=== PATIENT | female | born 1960 | race Caucasian/White ===

== ENCOUNTER 2025-06-25 21:39 | Inpatient (IN) | payer MEDICARE, MEDICAID ==
[~2025-06-25] VITALS: Ht 167.6 cm; Wt 58.0 kg
[2025-06-25 22:23] LABS: MEAN PLATELET VOLUME 7.3 FL (7.4-10.4); RED CELL DISTRIBUTION WIDTH 14.3 % (11.5-14.5)
--- NOTE | 2025-06-25 22:28 | RADIOLOGY REPORT ---
CHEST RADIOGRAPH Indication: CP Technique: 1 view Comparison: None FINDINGS: Lines and Tubes: External leads. Lungs/Pleura: No focal consolidation, pleural effusion or pneumothorax. Interstitial opacities appear within normal limits. Cardiomediastinum: Unremarkable. Other: No acute osseous abnormality. IMPRESSION: 1. No acute cardiopulmonary abnormality.
[2025-06-25 22:43] LABS: CREATININE 1.00 MG/DL (0.40-0.90); PRO BRAIN NATRIURETIC PEPTIDE 142 PG/ML (0-125); TOTAL CARBON DIOXIDE 17.1 MMOL/L (24-32); eCRCL 51 ML/MIN; eGFR 56 ML/MIN
--- NOTE | 2025-06-25 23:13 | RADIOLOGY REPORT ---
EXAM: CT CT HEAD INDICATION: aloc TECHNIQUE: CT of the head without intravenous contrast. Radiation Dose : 1. Head: CT Dose: CTDI volume is 51.35 mGy. Dose-length product is 892.15 mGy*cm The dose indicators for CT are the volume Computed Tomography (CT) Dose Index (CTDIvol) and the Dose Length Product (DLP), and are measured in units of mGy and mGy-cm, respectively. These indicators are not patient dose, but values generated from the CT scanner acquisition factors. The report includes radiation exposure data for exposures received during this examination. COMPARISON: None FINDINGS: There is no evidence of acute intracranial hemorrhage, extra-axial collection, mass effect, midline shift, herniation or hydrocephalus. The ventricles, sulci and cisterns are age appropriate. The don-white differentiation is intact. Right sphenoid and maxillary mucosal sinus disease. The remaining visualized paranasal sinuses and mastoid air cells are clear. The surrounding soft tissues and osseous structures are unremarkable. IMPRESSION: 1. No acute intracranial abnormality. Radiation optimization: All CT scans at this facility use at least one of these dose optimization techniques: automated exposure control mA and/or kV adjustment per patient size (includes targeted exams where dose is matched to clinical indication) or iterative reconstruction.
[2025-06-25 23:29] LABS: ETHANOL < 10 MG/DL (<10)
[2025-06-26 00:13] LABS: LEUKOCYTE ESTERASE ,URINE NEGATIVE (Neg); NITRITES, URINE POSITIVE (Neg); OCCULT BLOOD,URINE NEGATIVE (Neg)
[2025-06-26 00:17] LABS: UA COLLECTION TYPE OTHER
--- NOTE | 2025-06-26 00:18 | Physician Documentation ---
History of Present Illness ~ Chief Complaint: Mechanical Fall Stated Complaint: WEAKNESS Time Seen by MD: 22:14 OK to notify your PCP?: Yes Source: patient, RN/MD, EMS, RN notes reviewed, EMS notes reviewed, old records Mode of Arrival: EMS Exam Limitations: no limitations HPI This patient was brought into bed six report is obtained by EMS patient is altered complaint was generalized weakness supposedly presented to [facility] [place] yesterday for the same thing as well as frequent falls however we did not have any records that the patient has been to [facility]. Patient apparently had an unwitnessed fall acute mental status changes that occurred during the day she was a bit altered at noon. Neighbors noticed that she was wobbling toward the street. Apparently she was on the ground poorly responsive her children went to the neighbor's house to let them know that she was not doing well EMS was called for whom she is now here for evaluation. There was no report of prior history of strokes drug abuse no reports of fevers or chills or illness or sick contacts. Patient is now here for evaluation. Medication Reconciliation Allergies: Uncoded Allergies: PENCILLIN (Allergy, Unknown, 06/25/25) Past Medical History Past Medical History: Thyroid (unspecified) Past Surgical History: other (Unknown) Past Social History: Social history unknown Review of Systems ROS Unable to obtain due to medical state Physical Exam Vital Signs: RN Vital Signs have been reviewed: Yes, Temperature: 98.1, Source: Oral, Heart Rate: 93, Respiratory Rate: 16, BP: 105/62, Pulse Oximetry: 92, Weight: 58.000 Oxygen Flow Rate: 0 Physical Exam General: The patient is well developed, well nourished, nontoxic appearing but somnolent and no acute distress. Skin: [place], warm and dry with no rashes. HEENT: Head was normocephalic and atraumatic. Eyes - pupils equal, round, reactive to light and accommodation. Extraocular movements were intact. Pupils are 3 mm reactive Conjunctivae were nonicteric. The mouth and oropharynx were clear with moist mucous membranes. There were no pharyngeal exudates or erythema. Neck: Supple and nontender. There was no jugular venous distention, lymphadenopathy, thyromegaly or masses. Chest: Clear to auscultation bilaterally without wheezes, rales or rhonchi. No accessory muscle use. No dullness to percussion. Heart: Rate regular and rhythmic. S1, S2. No murmurs. Palpation of the chest wall was normal. No rubs or thrills. Abdomen: Soft, nontender and nondistended. Positive hyperactive bowel sounds. No guarding or rebound. No hepatosplenomegaly or palpable masses. Extremities: No cyanosis, clubbing or edema. The patient moves all extremities. Pulses were equal and symmetric. Neurologic: No focal findings motor sensory grossly intact Psychologic: The patient opens eyes to voice Progress Progress Note Discussed the case with the hospitalist who kindly agreed to admit the patient for further workup and care. Results/Orders Reviewed/noted all lab results: Yes Results/Orders Orders - ROSALES LYNN MD Chest,Single View (06/25/25 22:00) Monitor (06/25/25:) Saline Lock (06/25/25:) Oxygen (06/25/25:) Electrocardiogram (06/25/25:) Straight Cath For Urine Sample (06/25/25:) Culture Blood (06/25/25 22:19) Ct Head (06/25/25 22:35) [place] Prov.Neuro Consult (06/25/25 23:00) Cult Urine + [place] [facility] (06/26/25 00:17) Page Hospitalist (06/26/25 00:28) Fill Out Med Reconciliation (06/26/25 00:28) Completed Orders - ROSALES LYNN MD Chest,Single View (06/25/25 22:00) Cbc/Diff (06/25/25:) BMP (06/25/25:) PBNP (06/25/25:41) Hs Troponin I W Calculations (06/25/25:41) Hs Troponin I W Calculations (06/25/25:41) Hs Troponin I W Calculations (06/26/25:41) Ethanol (06/25/25 22:19) Drug Screen, Urine (06/25/25 22:19) Lacticsepsis (06/25/25 22:19) Ct Head (06/25/25 22:35) Liver Panel (06/25/25 22:36) Ua W/Microscopic, Cult If Ind (06/25/25 23:27) Ceftriaxone/P2s-Whyeyrdg 1gm (Rocephin 1 (06/26/25 00:30) Normal Saline 1000ml (0.9% Sodium Chlori (06/26/25 00:45) Medications Received in ER Medications (Trade) Dose Ordered Sig/[place] Route PRN Reason Start Time Stop Time Status Last Admin Dose Admin Ceftriaxone Sodium 50 ml @ 100 mls/hr ONCE ONCE IV 06/26/25 00:30 06/26/25 00:59 DC 06/26/25 01:02 100 MLS/HR (0.9% sodium chloride (NS) 1000ml IV soln) 1,000 ml ONCE ONCE IVB 06/26/25 00:45 06/26/25 00:46 DC 06/26/25 01:04 1,000 ML Vital Signs 06/25/25 06/25/25 06/25/25 06/25/25 21:42 22:30 23:37 23:44 Temp 98.1 Pulse 108 101 93 Resp 16 16 15 16 B/P (MAP) 100/65 105/62 (76) 105/62 (76) Pulse Ox 92 93 92 O2 Flow Rate 0 0 Laboratory Tests Test 06/25/25 21:58 06/25/25 22:36 06/25/25 23:27 06/26/25 00:18 White Blood Count 15.1 H Red Blood Count 4.00 L Hemoglobin 12.5 Hematocrit 37.4 Mean Corpuscular Volume 93.6 Mean Corpuscular Hemoglobin 31.3 H Mean Corpuscular Hemoglobin Concent 33.4 Red Cell Distribution Width 14.3 Platelet Count 279 Mean Platelet Volume 7.3 L Neutrophils (%) (Auto) 76.2 H Lymphocytes (%) (Auto) 8.6 L Monocytes (%) (Auto) 6.1 Eosinophils (%) (Auto) 8.5 H Basophils (%) (Auto) 0.6 Neutrophils # (Auto) 11.5 H Lymphocytes # (Auto) 1.3 Monocytes # (Auto) 0.9 Eosinophils # (Auto) 1.3 H Basophils # (Auto) 0.1 CBC Comment Sodium Level 140 Potassium Level 4.6 Chloride Level 112 H Carbon Dioxide Level 17.1 L Anion Gap 11 Blood Urea Nitrogen 45 H Creatinine 1.00 H Estimated GFR/1.73 m2 56 BUN/Creatinine Ratio 45.0 H Glucose Level 95 Calcium Level 9.4 Troponin I High Sensitivity 4 4 Pro-B-Type Natriuretic Peptide 142 H Albumin 3.0 L 3.1 L Chemistry Comments Lactic Acid Level 0.5 Total Bilirubin 0.2 Direct Bilirubin 0.1 Aspartate Amino Transf (AST/SGOT) 18 Alanine Aminotransferase (ALT/SGPT) 18 Alkaline Phosphatase 203 H Total Protein 6.6 Globulin 3.5 Albumin/Globulin Ratio 0.9 L Ethyl Alcohol Level < 10 Urine Specimen Description Other Urine Color Yellow Urine Clarity Clear Urine pH 6.0 Urine Specific Thomas 1.025 Urine Protein 30 H Urine Glucose (UA) 100 H Urine Ketones Negative Urine Occult Blood Negative Urine Nitrite Positive H Urine Bilirubin Small Urine Urobilinogen 0.2 Urine Leukocyte Esterase Negative Urine RBC 0-2 Urine WBC 20-30 H Urine WBC Clumps Few Urine Squamous Epithelial Cells Few Urine Bacteria 4+ Urine Mucus Few Urine Culture Indicated Indicated Volume Urine Centrifuged 10 ml Urine Comment Urine Opiates Screen Negative Urine Methadone Screen Negative Urine Fentanyl Screen Negative Urine Barbiturates Screen Negative Urine Phencyclidine Screen Negative Urine Amphetamines Screen Negative Urine Benzodiazepines Screen Positive Urine Cocaine Screen Negative Urine Cannabinoids Screen Negative Drug Screen Comment Troponin I High Sens Percent Delta 0 Troponin I Hi Sens Absolute Change 0 Microbiology Date/Time Source Procedure Growth Status 06/26/25 00:18 Blood Hand Right Blood Culture - Preliminary NEGATIVE (LESS THAN 24 HOURS) Resulted 06/26/25 00:17 Urine Other Urine Culture - Preliminary Culture received. Resulted Re-Evaluation Re-Evaluation : Re-Evaluation: Unchanged Progress Patient was seen and examined. Patient was evaluated at bedside. There was no focal findings to suggest any acute stroke there was no peritoneal signs to suggest acute surgical emergency. Neck is supple no signs of meningitis. No signs of trauma. Laboratory work was obtained. WBCs slightly elevated at 15.1. Seventy-six neutrophils. No anemia chemistry shows some mild prerenal dehydration with a BUN of 45 creatinine 1.0. BUN creatinine ratio was 45. LFTs within normal limits. There is slight metabolic derangement with a CO2 of 17.1 patient's tox screen is pending alcohol is negative urinalysis shows most likely a UTI with nitrates positive most likely urosepsis. Patient will be started on antibiotics admitted to the hospitalist service for further workup and care. Patient's lactic acid is normal at 0.5. Troponins negative. Continuous engine monitor interpretation shows sinus tachycardia heart rate 100s, abnormal, my interpretation. Pulse oximetry monitor interpretation shows normal oxygenation at 93% room air, normal, my interpretation. EKG/XRAY/CT/US/VASC/MRI EKG : Intepreting Monitor?: Yes Additional Comment 9:47 p.m. EKG shows sinus tachycardia heart rate 109 with poor R-wave progression wide QRS complex QTC 441. Chest X-Ray : Additional Comments CHEST RADIOGRAPH Indication: CP Technique: 1 view Comparison: None FINDINGS: Lines and Tubes: External leads. Lungs/Pleura: No focal consolidation, pleural effusion or pneumothorax. Interstitial opacities appear within normal limits. Cardiomediastinum: Unremarkable. Other: No acute osseous abnormality. IMPRESSION: 1. No acute cardiopulmonary abnormality. CT : CT: head With Contrast?: No Impression EXAM: CT CT HEAD INDICATION: aloc TECHNIQUE: CT of the head without intravenous contrast. Radiation Dose : 1. Head: CT Dose: CTDI volume is 51.35 mGy. Dose-length product is 892.15 mGy*cm The dose indicators for CT are the volume Computed Tomography (CT) Dose Index (CTDIvol) and the Dose Length Product (DLP), and are measured in units of mGy and mGy-cm, respectively. These indicators are not patient dose, but values generated from the CT scanner acquisition factors. The report includes radiation exposure data for exposures received during this examination. COMPARISON: None FINDINGS: There is no evidence of acute intracranial hemorrhage, extra-axial collection, mass effect, midline shift, herniation or hydrocephalus. The ventricles, sulci and cisterns are age appropriate. The don-white differentiation is intact. Right sphenoid and maxillary mucosal sinus disease. The remaining visualized paranasal sinuses and mastoid air cells are clear. The surrounding soft tissues and osseous structures are unremarkable. IMPRESSION: 1. No acute intracranial abnormality. Radiation optimization: All CT scans at this facility use at least one of these dose optimization techniques: automated exposure control mA and/or kV adjustment per patient size (includes targeted exams where dose is matched to clinical indication) or iterative reconstruction. Medical Decision Making Differential Dx:Considerations: Include: dehydration, Delirium Tr., DKA, encephalopathy, hypercalcemia, HHNC, hypoglycemia, hypernatremia, hyponatremia, hypoxia, postictal, closed head injury, C-spine injury, CVA, mass lesion, subarachnoid hemorrhage, drug overdose, encephalopathy, ETOH intoxication, medication toxicity, infection - meningitis, infection - sepsis, infection - UTI, heart failure, renal failure, respiratory failure, hyperthermia, hypothermia, other Departure Admitted to Inpatient Unit: yes, to hospitalist Admission Level of Care: Med/Surg with Tele Impression: Primary Impression: Metabolic encephalopathy Additional Impressions: Dehydration UTI (urinary tract infection) Qualified Codes: N30.00 - Acute cystitis without hematuria Sepsis Qualified Codes: A41.9 - Sepsis, unspecified organism Condition: Guarded Referrals: NO PRIMARY CARE PROVIDER (PCP) Education Educated: Patient Educated regarding: diagnosis, need for follow up Critical Care Note Total Time (mins): 30 Critical Care Note The very real possibility of a deterioration of this patient's condition required the highest level of my preparedness for sudden, emergent intervention. I provided critical care services, which included medication orders, frequent reevaluations of the patient's condition and response to treatment, ordering and reviewing test results, and discussing the case with various consultants. Excludes time spent performing separately billable procedures. The critical care time associated with the care of the patient was. 30 minutes Signature Scribe Signature: . Attestation: The note accurately reflects work and decisions made by me.Rosales Lynn MD 06/26/25 00:18 ROSALES LYNN MD Jun 26, 2025 00:18
[2025-06-26 00:24] LABS: URINE AMPHETAMINE SCREEN NEGATIVE (Neg); URINE BARBITUATE SCREEN NEGATIVE (Neg); URINE BENZODIAZEPINES SCREEN POSITIVE (Neg); URINE CANNABINOID SCREEN NEGATIVE (Neg); URINE COCAINE SCREEN NEGATIVE (Neg); URINE METHADONE SCREEN NEGATIVE (Neg); URINE OPIATE SCREEN NEGATIVE (Neg); URINE PHENCYCLIDINE SCREEN NEGATIVE (Neg)
[2025-06-26 00:29] LABS: MUCUS STRANDS FEW /LPF (Neg); SQUAMOUS EPITHELIAL CELL,UR FEW /LPF (FEW)
[2025-06-26 00:30] LABS: WBC CLUMPS,URINE FEW /HPF (NEGATIVE)
[2025-06-26] MEDS: CefTRIAXone/D5W-Rocephin 1gm 50 ML IV ONE (01:02)
[2025-06-26] MEDS: normal saline 1000ML IV soln IVB ONE (01:04)
[2025-06-26] MEDS ORDERED: magnesium Cl slow-release 64mg tablet PO PRN (01:40)
[2025-06-26] MEDS ORDERED: ondansetron/PF 4mg/2ml inj IV PRN (01:40)
[2025-06-26] MEDS ORDERED: magnesium hydroxide 30ml (MOM) UD suspension PO PRN (01:40)
[2025-06-26] MEDS ORDERED: potassium Cl 20 mEq SR tablet PO PRN ×2 (01:40)
[2025-06-26] MEDS ORDERED: magnesium sulf-water 4G/100mL 100 ML IV PRN (01:40)
[2025-06-26] MEDS ORDERED: potassium Cl 40MEQ/1/2NS 520ml 520 ML IV PRN (01:40)
[2025-06-26] MEDS ORDERED: mag hydrox/Alum hydrox/simeth 30ml oral suspension PO PRN (01:40)
[2025-06-26] MEDS ORDERED: magnesium sulf-water 2g/50mL 50 ML IV PRN (01:40)
--- NOTE | 2025-06-26 02:08 | HISTORY AND PHYSICAL-Residence ---
History & Physical Providers to CC Resident Creating Document: DIVYA BROWN RES ~ History of Present Illness Reason for Admit\Complaint: Altered mental status History of Present Illness This 64-year-old female was brought in by EMS with a chief concern of altered mental status and fall. Patient is drowsy and is only providing limited history. Opening eyes to sternal rubs and answering only few questions. Stated that she thinks she had a fall and loss of consciousness. She does not remember if the fall was mechanical or if she felt dizzy. Unsure when the fall happened and mentioned that she regained consciousness in the hospital. But, per the EMS she was awake when they went to her house. All the information is derived from the ER physician, and nurse. She lives with two children - around 7 years old. 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 His son called the neighbor when he found her on the floor. The neighbor called the EMS. The neighbor noticed her a little confused yesterday with shuffling gait. She went to [facility] ER yesterday but we do not have any records. She had a fall yesterday and also had a fall today. She denies any complaints and says no to everything. Only says that 'my head and hip hurt'. Is not able to provide any of her previous medical or surgical history. Says no when asked about smoking tobacco, drinking alcohol or abusing any other recreational drugs. Per the EMS, she had slurred speech but is able to talk meaningful sentences now. She is not able to understand resuscitative measures and so placed her on full code by default. Per nurse, no diarrhea, bloody stool or bloody urine or vomiting in the ER. ER provider mentioned about Keppra in the ER note but mentioned that it was for a different patient and was written by mistake in this note. Allergies: Uncoded Allergies: PENCILLIN (Allergy, Unknown, 06/25/25) Past Medical History Past Medical History Patient is not able to provide any history. Based on the prescription medications list available at the bedside, likely CHF as she has Jardiance, Entresto, spironolactone in his medications. Hypothyroidism, GERD, anxiety/depression - has trazodone, temazepam, quetiapine, escitalopram and prazosin Past Surgical History Surgical History Comment Patient is not able to provide any surgical history. No previous records available. Recommend to reach out to any family member or neighbor or [facility] records Past Social History Social History Comment Says no when asked about smoking tobacco, drinking alcohol or abusing any other recreational drugs Past Social History: Social history unknown ROS ROS Patient is not oriented enough to provide any history. Only says no when asked about any symptoms. Says that her hips and head hurt Exam Vitals: Vital Signs Date Time Temp Pulse Resp B/P (MAP) Pulse Ox O2 Delivery O2 Flow Rate FiO2 06/25/25 23:44 93 16 105/62 (76) 92 0 06/25/25 21:42 98.1 General: GCS 12- E2V4 M6. Extremely drowsy HEENT: Normocephalic. Contusion below left eye - tender to touch. Pupils-about 3 mm in size, equal round reactive to light and accommodation. Extraocular movements intact. Oral and nasal mucosa dry Neck: Trachea is in midline. No masses or JVD Chest: Bilateral normal breath sounds. No crackles, rhonchi or wheezes Cardiovascular: Regular rate and rhythm. S1-S2 normal. No rubs or murmurs Abdomen: Soft, nontender nondistended. Bowel sounds present. Now, has a PureWick catheter - placed here in the ER Extremities: No cyanosis, clubbing or edema Central Nervous System: Bilateral lower extremities motor power 5/5, right upper extremity motor power- 4/5, left upper extremity motor power-5/5. Could not follow commands for finger-nose test and [id number] test Musculoskeletal: No bilateral hip tenderness Skin: Warm and dry Diagnostic Data Last Recorded Lab Results: 06/26/25 0205 06/26/25 0205 Advance Care Planning Advanced Care plannin - 30 Minutes Additional Plan Acute metabolic encephalopathy Toxic vs metabolic vs stroke Home medications include benzodiazepines. Urine tox positive for benzos Urinalysis showed 30 protein, positive nitrite, 20-30 WBC, few WBC clumps, 4+ bacteria Elevated WBC 15.1 Urine culture and blood culture ordered. Procalcitonin level ordered Received Rocephin 1 g IV once in the ER and normal saline 1 L bolus Serum alcohol level not elevated Ammonia level and TSH ordered Head CT negative for any acute abnormality Head/neck CTA and head MRI ordered Chest x-ray showed no acute cardiopulmonary abnormality Hold home medication trazodone, temazepam, quetiapine, escitalopram, prazosin Bilateral hip x-ray ordered Face CT ordered she has contusion and tenderness below left eye Troponins negative Metabolic acidosis with normal anion gap Acute kidney injury on CKD Likely due to hyperchloremia or dehydration Less likely to be RTA. Urine pH normal. Serum Potassium levels with a normal limits Received 1 L normal saline bolus in the ER Started Ringer's lactate at 100 cc/hour Urine lytes, serum osmolality ordered Elevated alkaline phosphatase Total bilirubin, AST and ALT within normal limits Continue to monitor Possible CHF Has Entresto, spironolactone, Jardiance in home medications list Hold medications until confirmed with the pharmacy Continue IV fluids Echocardiogram ordered Chest x-ray does not show any cardiomegaly. ProBNP not significantly elevated Hypothyroidism TSH ordered No home dosage of levothyroxine in the medication list. Recommend checking with the pharmacy and continue the dose # Awaiting medication reconciliation Diet: NPO until passes bedside swallow eval and then continue regular diet DVT prophylaxis: Heparin 5000 subcutaneous q.12h Divya Brown MD Internal Medicine Resident, PGY 3 Date of Service: Jun 26, 2025 Billing Provider: BC AMAYA MD Common Visit Codes: [id number] INP/OBS CARE (HIGH) Assessment/Plan Assessment Evaluated the patient with the help of resident. Discussed the case with them. Reviewed notes by the resident. Agree with her assessments and plans. I also reviewed the patient's records. No additional points at this time. DIVYA BROWN RES Jun 26, 2025 02:08 BC AMAYA MD Jun 26, 2025 04:38
[2025-06-26] MEDS: ringers solution, lacted 1,000 ML IV SCH (02:37)
[2025-06-26 03:00] LABS: MEAN PLATELET VOLUME 7.9 FL (7.4-10.4); RED CELL DISTRIBUTION WIDTH 14.4 % (11.5-14.5)
[2025-06-26 03:21] LABS: CREATININE 0.86 MG/DL (0.40-0.90); TOTAL CARBON DIOXIDE 17.7 MMOL/L (24-32); eCRCL 60 ML/MIN; eGFR 66 ML/MIN
[2025-06-26 03:31] LABS: OSMOLALITY 306 MOSM/K (280-300)
[2025-06-26] MEDS ORDERED: PRAZ2CAP2 PO (03:41)
[2025-06-26] MEDS ORDERED: ESCI-8 PO (03:41)
[2025-06-26] MEDS ORDERED: QUET-1 PO (03:41)
[2025-06-26] MEDS ORDERED: TEMA30CA PO (03:41)
[2025-06-26] MEDS ORDERED: EMPA10TA PO (03:41)
[2025-06-26] MEDS ORDERED: PANT40TA54 PO (03:41)
[2025-06-26] MEDS ORDERED: SACU1TAB PO (03:41)
[2025-06-26] MEDS ORDERED: TRAZ-256 PO (03:41)
[2025-06-26] MEDS ORDERED: SYN0.088T PO (03:41)
[2025-06-26] MEDS ORDERED: SPIR25TA5 PO (03:41)
--- NOTE | 2025-06-26 05:31 | ELECTROCARDIOGRAPH REPORT ---
[facility] Test Date: 2025-06-25 Test Time: 21:47:01 Pat Name: AUGIE GODFREY Department: EMERGENCY ROOM Room: ED 6 1 Gender: F [employer] Developer: : [id number] Requested By: ROSALES LYNN Order Number: [id number] Reading MD: Dr. Rosales Lynn Measurements Intervals [place] Rate: 109 P: 38 ME: 155 QRS: 14 QRSD: 112 T: 50 QT: 327 QTc: 441 Interpretive Statements Sinus tachycardia Borderline intraventricular conduction delay Borderline ST elevation, anterior leads Electronically Signed On 06-26-2025 5:36:[address] Rosales Lynn Please click the below link to view image of tracing.
--- NOTE | 2025-06-26 07:54 | RADIOLOGY REPORT ---
Right HIP RADIOGRAPH. CLINICAL INDICATION: fall and hip pain - RT HIP TECHNIQUE: 4 views of the right hip were obtained. FINDINGS: There is no evidence of fracture, subluxation or dislocation.The alignment is within normal limits.The bony mineralization is normal.No radiopaque foreign body is identified. Moderate right hip osteoarthritis . Moderate left hip osteoarthritis IMPRESSION: 1. No evidence of acute bony injury.
[2025-06-26] MEDS: K and/or MAG REPLACEMENT MC SCH (08:00)
[2025-06-26] MEDS: heparin, porcine 5000 units/ml vial SQ SCH (08:13)
[2025-06-26 11:21] VITALS: BP 112/71; PULSE 88; RESP 14; TEMP 97.5; O2SAT 94
--- NOTE | 2025-06-26 15:59 | RADIOLOGY REPORT ---
CLINICAL HISTORY: possible syncope TECHNIQUE: CT angiogram of the head and neck was performed without and with intravenous contrast. 3D MIP reconstructed images were created and archived on the PACS system. This exam was performed according to our departmental dose optimization program. Up-to-date CT equipment and radiation dose reduction techniques are utilized as appropriate. CTDI 13.7 DLP 515 COMPARISON: CT CT HEAD on DOS: 06/25/25 FINDINGS: CTA NECK: The common carotid, internal carotid, and vertebral arteries are patent with no evidence for high grade narrowing, occlusion, and dissection. There is mild mixed density plaque of the left carotid bulb. There is no significant narrowing at the carotid bulbs per NASCET criteria. There are moderate to advanced centrilobular emphysematous changes of both lung bases. CTA HEAD: The anterior and posterior intracranial circulations are intact with no evidence for high grade narrowing, occlusion, or aneurysm. IMPRESSION: No acute CTA abnormality of the major head and neck arterial vasculature. Moderate to advanced centrilobular emphysematous changes.
[2025-06-26 18:00] VITALS: BP 119/66; PULSE 92; RESP 16; TEMP 98.4; O2SAT 94
--- NOTE | 2025-06-26 18:50 | CARDIOLOGY REPORT ---
APPROVED REPORT EXAM: Comprehensive 2D, Doppler, and color-flow Echocardiogram. 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 121.1 cm/s AoV VTI 21.0 cm AO Peak GR. 5.9 mmHg AO Mean GR. 3 mmHg LVOT VTI 15.20 cm LVOT Peak Bashir. 84.9 cm/s JANNA(VTI)/BSA 2.05 cm2/m2 JANNA (VTI) 2.05 cm2 AI P 1/2 Time 436 ms Mitral Valve MV E Velocity 67.8 cm/s MV Peak Gr. 2 mmHg MV A Velocity 92.3 cm/s MV PHT 60 ms E/A Ratio 0.7 MVA (PHT) 3.67 cm2 MV VMax 71.0 cm/s LEFT VENTRICLE Normal LV size and function. Mild concentric hypertrophy. LVEF is 55%. RIGHT VENTRICLE The right ventricle is normal size. The right ventricular systolic function is normal. ATRIA The left atrium size is normal. The right atrium size is normal. AORTIC VALVE Trileaflet AV appears mildly sclerotic without stenosis. Mild insufficiency. MITRAL VALVE Mild mitral annular calcification without stenosis. No regurgitation. TRICUSPID VALVE TV appears structurally normal with no regurgitation. PULMONIC VALVE Pulmonic valve is not well visualized. GREAT VESSELS The aortic root is normal in size. IVC is not well visualized. PERICARDIUM Normal pericardium. No effusion. Other Information Study Quality: Adequate Conclusion Normal LV size and function. Mild concentric hypertrophy. LVEF is 55%. The right ventricle is normal size. The right ventricular systolic function is normal. The left atrium size is normal. Trileaflet AV appears mildly sclerotic without stenosis. Mild insufficiency. Mild mitral annular calcification without stenosis. No regurgitation. TV appears structurally normal with no regurgitation. Normal pericardium. No effusion.
--- NOTE | 2025-06-26 21:25 | RADIOLOGY REPORT ---
EXAM: MR MRI HEAD INDICATION: rule out stroke TECHNIQUE: Multiplanar, multisequence imaging of the brain without contrast. COMPARISON: CT CTA NECK/HEAD on DOS: 06/26/25 FINDINGS: [PARENCHYMA]: No acute infarct or hemorrhage. No mass effect or herniation. No abnormal susceptibility weighted artifact. There are minimal periventricular and centrum semiovale T2/FLAIR hyperintensities, which are nonspecific but most likely represent chronic microvascular ischemic change. [VENTRICLES]: No hydrocephalus. [EXTRA-AXIAL SPACES]: No extra-axial fluid collections. [FLOW VOIDS]: The flow voids are intact. [EXTRA-CRANIAL STRUCTURES]: The bony structures are intact. Visualized portions of the paranasal sinuses and mastoid air cells are essentially clear. IMPRESSION: 1. No MR evidence of an acute infarction.
[2025-06-26] MEDS: sacubitril/valsartan 24mg-26mg tablet PO SCH (21:26)
[2025-06-26 22:00] VITALS: BP 131/66; PULSE 83; RESP 14; TEMP 97.2; O2SAT 94
[2025-06-26] MEDS: CefTRIAXone/D5W-Rocephin 1gm 50 ML IV SCH (22:13)
[2025-06-27 06:00] VITALS: BP 99/46; PULSE 79; RESP 14; TEMP 97.2; O2SAT 96
[2025-06-27 06:12] LABS: MEAN PLATELET VOLUME 7.0 FL (7.4-10.4); RED CELL DISTRIBUTION WIDTH 14.2 % (11.5-14.5)
[2025-06-27 06:21] LABS: APTT 26 SECONDS (22-32); INR 1.0 INR
[2025-06-27 06:42] LABS: CHOL/HDL RATIO 5.1 (0.00-4.99); CREATININE 0.47 MG/DL (0.40-0.90); LDL CHOLESTEROL 99 MG/DL (50-100); PHOSPHORUS 2.5 MG/DL (2.3-4.5); TOTAL CARBON DIOXIDE 22.5 MMOL/L (24-32); eCRCL 109 ML/MIN; eGFR > 90 ML/MIN
[2025-06-27] MEDS: EMPAGLIFLOZIN 10 MG TABLET PO SCH (07:32)
[2025-06-27] MEDS: levoTHYROXINE 88mcg tablet PO SCH (07:32)
[2025-06-27] MEDS: ESCITALOPRAM 10 mg tablet 10 MG TABLET PO SCH (07:33)
[2025-06-27] MEDS: pantoprazole 40mg Tablet.DR PO SCH (07:33)
[2025-06-27 08:46] LABS: EOSINOPHILS % (MANUAL) 19.0 % (0-6); LYMPHOCYTES % (MANUAL) 20.0 % (21-51); MONOCYTES % (MANUAL) 9.0 % (2-12); NEUTROPHILS % (MANUAL) 52.0 % (42-75); PLATELET ESTIMATE NORMAL
[2025-06-27 10:00] VITALS: BP 107/67; PULSE 104; RESP 16; TEMP 98.2; O2SAT 95
[2025-06-27 18:00] VITALS: BP 138/60; PULSE 77; RESP 16; TEMP 98.6; O2SAT 96
--- NOTE | 2025-06-27 19:39 | PROGRESS NOTE- Residence ---
Progress Note - Resident Providers to CC Resident Creating Document: CATRACHO SORIANO RES ~ Antibiotic Timeout Antibiotic Ordered?: Yes Subjective Patient was examined at bedside, she is alert, awake, oriented she denies any acute symptoms Objective Vital Signs Date Time Temp Pulse Resp B/P (MAP) Pulse Ox O2 Delivery O2 Flow Rate FiO2 06/27/25 10:00 98.2 104 16 107/67 (80) 95 Room Air 06/26/25 08:48 2.0 Result Diagram: 06/27/25 0532 06/27/25 0529 General: Patient is alert, awake, oriented and cooperative HEENT: Normocephalic. Contusion below left eye - tender to touch. Pupils-about 3 mm in size, equal round reactive to light and accommodation. Extraocular movements intact. Oral and nasal mucosa dry Neck: Trachea is in midline. No masses or JVD Chest: Bilateral normal breath sounds. No crackles, rhonchi or wheezes Cardiovascular: Regular rate and rhythm. S1-S2 normal. No rubs or murmurs Abdomen: Soft, nontender nondistended. Bowel sounds present. Extremities: No cyanosis, clubbing or edema Central Nervous System: Bilateral lower extremities motor power 5/5, right upper extremity motor power- 4/5, left upper extremity motor power-5/5. Normal coordination Musculoskeletal: No bilateral hip tenderness Skin: Warm and dry Coagulation Studies Laboratory Tests Test 06/27/25 05:29 Prothrombin Time 10.4 SECONDS (9.0-12.0) INR International Normalized Ratio 1.0 INR Activated Partial Thromboplast Time 26 SECONDS (22-32) Coagulation Comments Advance Care Planning Advanced Care plannin - 30 Minutes Assessment Assessment 64 years old female who brought to the ED with altered level of consciousness is currently evaluated Plan Plan Acute metabolic encephalopathy Possibly due to urinary tract infection Urinalysis showed 30 protein, positive nitrite, 20-30 WBC, few WBC clumps, 4+ bacteria Ammonia level <10 and TSH 4.[address] negative for any acute abnormality Head/neck CTA : * No acute CTA abnormality of the major head and neck arterial vasculature. * Moderate to advanced centrilobular emphysematous changes Head MRI: * No MR evidence of an acute infarction. Continue 1 g IV ceftriaxone daily Acute kidney injury on CKD Possibly renal tubular stasis-improving BUN 17, creatinine-0.47 Follow-up with urine solutes Continue monitoring CMP Metabolic acidosis with normal anion gap-improving Elevated alkaline phosphatase Trending down Total bilirubin and AST , ALT is low Continue to monitor Diastolic heart failure, not in acute distress with ejection fraction 55% Chest x-ray does not show any cardiomegaly. ProBNP not significantly elevated Echocardiogram : * Normal LV size and function. Mild concentric hypertrophy. LVEF is 55%. * The right ventricle is normal size. The right ventricular systolic function is normal. * The left atrium size is normal. * Trileaflet AV appears mildly sclerotic without stenosis. Mild insufficiency. * Mild mitral annular calcification without stenosis. No regurgitation. * TV appears structurally normal with no regurgitation. * Normal pericardium. No effusion. Continue Entresto, spironolactone, Jardiance Hypothyroidism TSH -4.96 Follow up with free T4, total T3 Continue levothyroxine 88 mcg p.o. daily History of depression/anxiety Continue home meds escitalopram 10 mg p.o. daily History of insomnia Continue home med temazepam, trazodone 100 mg p.o. Code Status: Full DVT prophylaxis: Heparin 5000 unit subcu Nutrition: Regular diet Prognosis: Guarded Disposition-patient will be monitored in [facility] esc[facility] PGY1-Internal Medicine Resident Date of Service: Jun 27, 2025 Billing Provider: VICTOR MANUEL ROBLERO MD Common Visit Codes: [id number] INP/OBS CARE(HIGH) CATRACHO SORIANO, RES Jun 27, 2025 19:39 VICTOR MANUEL ROBLERO MD Jul 03, 2025 13:27
[2025-06-27 20:35] VITALS: RESP 14; O2SAT 96
[2025-06-27 22:00] VITALS: BP 131/63; PULSE 79; RESP 14; TEMP 97.2; O2SAT 96
[2025-06-28 06:00] VITALS: BP 133/59; PULSE 69; RESP 12; TEMP 97.4; O2SAT 96
[2025-06-28 06:34] LABS: MEAN PLATELET VOLUME 7.1 FL (7.4-10.4); RED CELL DISTRIBUTION WIDTH 14.1 % (11.5-14.5)
[2025-06-28 06:54] LABS: APTT 28 SECONDS (22-32); INR 1.0 INR
[2025-06-28 07:12] LABS: CREATININE 0.47 MG/DL (0.40-0.90); PHOSPHORUS 3.2 MG/DL (2.3-4.5); TOTAL CARBON DIOXIDE 26.3 MMOL/L (24-32); eCRCL 109 ML/MIN; eGFR > 90 ML/MIN
[2025-06-28 11:00] VITALS: BP 119/59; PULSE 80; RESP 16; TEMP 98.9; O2SAT 96
[2025-06-28] MEDS ORDERED: CEFD300C3 PO (13:28)
[2025-06-28] MEDS ORDERED: LACT1CAP26 PO (13:40)
[2025-06-28] MEDS ORDERED: LEVO100T9 PO (13:40)
[2025-06-28] MEDS ORDERED: CARV-164 PO (13:42)
--- NOTE | 2025-06-28 22:51 | DISCHARGE SUMMARY-Residence ---
Discharge Summary Providers to CC Resident Creating Document: DICHAPONICHOLE KAURH, RES ~ Discharge Summary Admission Diagnosis: ACUTE ENCEPHALOPATHY Hospital Course DATE OF ADMISSION: 06/26/2025 DATE OF DISCHARGE: 06/28/2025 Discharge Diagnosis\Comment: Acute metabolic encephalopathy due to UTI Urinary tract infection Acute kidney injury on CKD Metabolic acidosis with normal anion gap Isolated alkaline phosphatase level Diastolic heart failure, not in acute distress with ejection fraction 55 % Hypothyroid Depression/anxiety Insomnia Operations\Procedures: None Consultants: None Complications: None Condition on DC: Stable New Medications: Carvedilol (Carvedilol) 3.125 Mg Tablet 1 TAB PO Q12H for 30 Days, #60 TAB 0 Refills Cefdinir* (Cefdinir*) 300 Mg Capsule 1 CAP PO Q12H for 5 Days, #10 CAP Lactobacillus Rhamnosus (Culturelle) 10 Billion Cell Capsule 1 CAP PO DAILY for 30 Days, #30 CAP 0 Refills Levothyroxine Sodium (Levothyroxine Sodium) 100 Mcg Tablet 1 TAB PO DAILY for 30 Days, #30 TAB 0 Refills Continued Medications: Empagliflozin (Jardiance) 10 Mg Tablet 1 TAB PO DAILY for 30 Days, #30 TAB 0 Refills Escitalopram Oxalate (Escitalopram Oxalate) 10 Mg Tablet 1 TAB PO DAILY for 30 Days, #30 TAB 0 Refills Pantoprazole Sodium (Pantoprazole Sodium) 40 Mg Tablet.dr 1 TAB PO DAILY for 30 Days, #30 TAB 0 Refills Prazosin Hcl (Prazosin Hcl) 2 Mg Capsule 2 MG PO, CAP Quetiapine Fumarate* (Seroquel*) 100 Mg Tablet 3 TAB PO HS, TAB Sacubitril/Valsartan (Entresto 24 mg-26 mg Tablet) 24 Mg-26 Mg Tablet 0.5 TAB PO Q12H for 30 Days, #60 TAB 0 Refills Spironolactone (Spironolactone) 25 Mg Tablet 0.5 TAB PO DAILY for 30 Days, #30 TAB 0 Refills Temazepam (Temazepam) 30 Mg Capsule 1 CAP PO HSPRN PRN for sleep for 30 Days, #30 CAP 0 Refills Trazodone HCl (Trazodone HCl) 100 Mg Tablet 1 TAB PO HS for 30 Days, #30 TAB 0 Refills Discontinued Medications: Levothyroxine Sodium* (Synthroid*) 88 Mcg Tablet 1 TAB PO DAILY for 30 Days, #30 TAB Discharge Summary: History of present illness This 64-year-old female was brought in by EMS with a chief concern of altered mental status and fall. Patient is drowsy and is only providing limited history. Opening eyes to sternal rubs and answering only few questions. Stated that she thinks she had a fall and loss of consciousness. She does not remember if the fall was mechanical or if she felt dizzy. Unsure when the fall happened and mentioned that she regained consciousness in the hospital. But, per the EMS she was awake when they went to her house. All the information is derived from the ER physician, and nurse. She lives with two children - around 7 years old. 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 His son called the neighbor when he found her on the floor. The neighbor called the EMS. The neighbor noticed her a little confused yesterday with shuffling gait. She went to [facility] ER yesterday but we do not have any records. She had a fall yesterday and also had a fall today. She denies any complaints and says no to everything. Only says that 'my head and hip hurt'. Is not able to provide any of her previous medical or surgical history. Says no when asked about smoking tobacco, drinking alcohol or abusing any other recreational drugs. Per the EMS, she had slurred speech but is able to talk meaningful sentences now. She is not able to understand resuscitative measures and so placed her on full code by default. Per nurse, no diarrhea, bloody stool or bloody urine or vomiting in the ER. ER provider mentioned about Keppra in the ER note but mentioned that it was for a different patient and was written by mistake in this note. Hospital course This is 64 years old female presented to ED with altered level of consciousness and stroke workup began on day 1 which ruled out any acute intracranial abnormalities, patient urinalysis came out positive and we started treating with ceftriaxone IV, patient also has Douglas on CKD which gradually improved, patient has a history of hypothyroidism for which she takes 88 mcg levothyroxine, but laboratory results shows hypothyroid he has poorly controlled hence we switch to 100 mcg levothyroxine. And for her diastolic heart failure with preserved ejection fraction we continued Entresto, spironolactone, Jardiance. On the last day, patient is alert and active, her condition got stabilized and she recovered sooner than expected and hence discharged Vital Signs Date Time Temp Pulse Resp B/P (MAP) Pulse Ox O2 Delivery O2 Flow Rate FiO2 06/28/25 11:00 98.9 80 16 119/59 (79) 96 Room Air 06/28/25 08:00 0.0 Laboratory Tests Test 06/27/25 05:29 06/27/25 05:32 06/28/25 05:50 Prothrombin Time 10.4 SECONDS 10.3 SECONDS INR International Normalized Ratio 1.0 INR 1.0 INR Activated Partial Thromboplast Time 26 SECONDS 28 SECONDS Coagulation Comments Sodium Level 145 MMOL/L 148 MMOL/L Potassium Level 3.9 MMOL/L 3.7 MMOL/L Chloride Level 116 MMOL/L 114 MMOL/L Carbon Dioxide Level 22.5 MMOL/L 26.3 MMOL/L Anion Gap 7 8 Blood Urea Nitrogen 17 MG/DL 11 MG/DL Creatinine 0.47 MG/DL 0.47 MG/DL Estimated GFR/1.73 m2 > 90 ML/MIN > 90 ML/MIN BUN/Creatinine Ratio 36.2 23.4 Glucose Level 84 MG/DL 88 MG/DL Calcium Level 8.7 MG/DL 8.9 MG/DL Phosphorus Level 2.5 MG/DL 3.2 MG/DL Magnesium Level 2.2 MG/DL 2.0 MG/DL Total Bilirubin 0.1 MG/DL 0.1 MG/DL Aspartate Amino Transf (AST/SGOT) 13 U/L 18 U/L Alanine Aminotransferase (ALT/SGPT) 7 U/L 15 U/L Alkaline Phosphatase 137 IU/L 127 IU/L Total Protein 5.1 G/DL 5.6 G/DL Albumin 2.2 G/DL 2.5 G/DL Globulin 2.9 G/DL 3.1 G/DL Albumin/Globulin Ratio 0.8 0.8 Triglycerides Level 246 MG/DL Cholesterol Level 185 MG/DL LDL Cholesterol 99 MG/DL HDL Cholesterol 36 MG/DL Cholesterol/HDL Ratio 5.1 Thyroid Stimulating Hormone (TSH) 4.96 ulU/ml Chemistry Comments White Blood Count 5.5 X10'3 5.7 X10'3 Red Blood Count 3.26 X10'6 3.64 X10'6 Hemoglobin 10.6 g/dl 11.5 g/dl Hematocrit 30.5 % 33.9 % Mean Corpuscular Volume 93.5 FL 93.2 FL Mean Corpuscular Hemoglobin 32.4 PG 31.7 PG Mean Corpuscular Hemoglobin Concent 34.7 g/dL 34.0 g/dL Red Cell Distribution Width 14.2 % 14.1 % Platelet Count 232 X10'3 229 X10'3 Mean Platelet Volume 7.0 FL 7.1 FL Neutrophils (%) (Auto) 44.6 % 43.5 % Lymphocytes (%) (Auto) 21.7 % 25.1 % Monocytes (%) (Auto) 9.6 % 12.3 % Eosinophils (%) (Auto) 23.1 % 18.0 % Basophils (%) (Auto) 1.0 % 1.1 % Neutrophils # (Auto) 2.4 X10'3 2.5 X10'3 Lymphocytes # (Auto) 1.2 X10'3 1.4 X10'3 Monocytes # (Auto) 0.5 X10'3 0.7 X10'3 Eosinophils # (Auto) 1.3 X10'3 1.0 X10'3 Basophils # (Auto) 0.1 X10'3 0.1 X10'3 CBC Comment Differential Total Cells Counted 100 Neutrophils % (Manual) 52.0 % Lymphocytes % (Manual) 20.0 % Monocytes % (Manual) 9.0 % Eosinophils % (Manual) 19.0 % Platelet Estimate Normal Red Blood Cell Morphology Normal Basophilic Stippling Free Thyroxine 0.44 NG/DL Physical examination: General: Patient is alert, awake, oriented and cooperative HEENT: Normocephalic. Contusion below left eye - tender to touch. Pupils-about 3 mm in size, equal round reactive to light and accommodation. Extraocular movements intact. Oral and nasal mucosa dry Neck: Trachea is in midline. No masses or JVD Chest: Bilateral normal breath sounds. No crackles, rhonchi or wheezes Cardiovascular: Regular rate and rhythm. S1-S2 normal. No rubs or murmurs Abdomen: Soft, nontender nondistended. Bowel sounds present. Extremities: No cyanosis, clubbing or edema Central Nervous System: Bilateral lower extremities motor power 5/5, right upper extremity motor power- 4/5, left upper extremity motor power-5/5. Normal coordination Musculoskeletal: No bilateral hip tenderness Skin: Warm and dry Imaging in hospital: Chest x-ray-No acute cardiopulmonary abnormality. Head CT without contrast- No acute intracranial abnormality. Echocardiogram: Normal LV size and function. Mild concentric hypertrophy. LVEF is 55%. The right ventricle is normal size. The right ventricular systolic function is normal. The left atrium size is normal. Trileaflet AV appears mildly sclerotic without stenosis. Mild insufficiency. Mild mitral annular calcification without stenosis. No regurgitation. TV appears structurally normal with no regurgitation. Normal pericardium. No effusion. Hip x-ray:No evidence of acute bony injury. Head/neck CTA: No acute CTA abnormality of the major head and neck arterial vasculature.Moderate to advanced centrilobular emphysematous changes. MRI of head: No MR evidence of an acute infarction Discharge instructions: Follow up with PCP and electrical supervisor in 1 week Follow up urine culture sensitivity Started tab cefdinir 300 mg capsule Follow up with PCP with a TSH in 4-6 weeks and we increased the dose of levothyroxine to 100 mcg p.o. daily from 88.5 mcg because TSH of 4.9 Call 911 or come to ED in case of emergency *Problems/Diagnosis: (1) UTI (urinary tract infection) Status: Acute (2) Sepsis Status: Acute (3) Dehydration Status: Acute (4) Metabolic encephalopathy Status: Acute (5) Acute kidney injury Total Time Spent on D/C: Up to 30 Minutes Date of Service: Jun 28, 2025 Billing Provider: VICTOR MANUEL ROBLERO MD Common Visit Codes: 05753-NMJ/OBS DISCH DAY >30min Problem Qualifiers (1) UTI (urinary tract infection): Urinary tract infection type: acute cystitis Hematuria presence: without hematuria Qualified Codes: N30.00 - Acute cystitis without hematuria (2) Sepsis: Sepsis type: sepsis due to unspecified organism Sepsis acute organ dysfunction status: unspecified Qualified Codes: A41.9 - Sepsis, unspecified organism SHE SORIANO, RES Jun 28, 2025 22:50 VICTOR MANUEL ROBLERO MD Jul 03, 2025 13:27
== END 2025-06-28 16:03 | disposition home or self-care (01) | DRG 871 ==
LOC: ER 21:40 → ED HOLD 06-26 01:47 → EDBEDREQ 06-26 10:48 → EDBEDREQSVC 06-26 10:48 → ORTHO 4S 06-26 11:25
PROVIDERS: ADMIT Internal Medicine Critical Care Medicine; ATTEND Family Medicine
PROC: B3251ZZ Computerized Tomography (CT Scan) of Bilateral Common Carotid Arteries using Low Osmolar Contrast (ICD-10-PCS; principal; 2025-06-26)
PROC: B32G1ZZ Computerized Tomography (CT Scan) of Bilateral Vertebral Arteries using Low Osmolar Contrast (ICD-10-PCS; 2025-06-26)
PROC: B32R1ZZ Computerized Tomography (CT Scan) of Intracranial Arteries using Low Osmolar Contrast (ICD-10-PCS; 2025-06-26)
PROC: B3281ZZ Computerized Tomography (CT Scan) of Bilateral Internal Carotid Arteries using Low Osmolar Contrast (ICD-10-PCS; 2025-06-26)
DX: A41.9 Sepsis, unspecified organism (principal); G93.41 Metabolic encephalopathy; N30.00 Acute cystitis without hematuria; I50.30 Unspecified diastolic (congestive) heart failure; N17.9 Acute kidney failure, unspecified; E86.0 Dehydration; N18.9 Chronic kidney disease, unspecified; E03.9 Hypothyroidism, unspecified; F32.A Depression, unspecified; F41.9 Anxiety disorder, unspecified; Z88.0 Allergy status to penicillin
CPT/HCPCS: 36415; 70450; 70496; 70498; 70551; 71045; 73502; 80048; 80053; 80061; 80076; 80305; 80320; 81001; 81003; 82140; 83036; 83605; 83735; 83880; 83930; 84100; 84145; 84439; 84443; 84480; 84484; 85007; 85025; 85610; 85730; 87040; 87077; 87081; 87088; 87186; 93005; 93306; 96365; 99285; C1758; G0378; J0696; J1644; J7030; J7120; Q9967

== ENCOUNTER 2025-08-07 23:58 | Emergency (ER) | payer MEDICARE, MEDICAID ==
[~2025-08-07] VITALS: Ht 165.1 cm; Wt 58.0 kg
[~2025-08-07 23:58] MED LIST: CARV-164 PO; EMPA10TA PO; ESCI-8 PO; LACT1CAP26 PO; LEVO100T9 PO; PANT40TA54 PO; PRAZ2CAP2 PO; QUET-1 PO; SACU1TAB PO; SPIR25TA5 PO; TEMA30CA PO; TRAZ-256 PO
--- NOTE | 2025-08-08 00:05 | Physician Documentation ---
History of Present Illness ~ General Stated Complaint: WEAKNESS A ALS Time Seen by MD: 00:03 History of Present Illness Initial Comments Patient presents to the emergency room with generalized weakness and slurred speech. This is reported to have happened previously for medication reaction. Patient does endorse taking temazepam and Seroquel a proximally 3 hours prior to arrival for sleep. She feels this is either from the medication or possibly urinary tract infection. No fevers. No dysuria reported. Medication Reconciliation Allergies: Uncoded Allergies: PENCILLIN (Allergy, Unknown, 06/25/25) Scheduled Carvedilol (Carvedilol), 1 TAB PO Q12H Empagliflozin (Jardiance), 1 TAB PO DAILY, (Reported) Escitalopram Oxalate (Escitalopram Oxalate), 1 TAB PO DAILY, (Reported) Lactobacillus Rhamnosus (Culturelle), 1 CAP PO DAILY Levothyroxine Sodium (Levothyroxine Sodium), 1 TAB PO DAILY Pantoprazole Sodium (Pantoprazole Sodium), 1 TAB PO DAILY, (Reported) Quetiapine Fumarate* (Seroquel*), 3 TAB PO HS, (Reported) Sacubitril/Valsartan (Entresto 24 mg-26 mg Tablet), 0.5 TAB PO Q12H, (Reported) Spironolactone (Spironolactone), 0.5 TAB PO DAILY, (Reported) Trazodone HCl (Trazodone HCl), 1 TAB PO HS, (Reported) Scheduled PRN Temazepam (Temazepam), 1 CAP PO HSPRN PRN for sleep, (Reported) Miscellaneous Medications Prazosin Hcl (Prazosin Hcl), 2 MG PO, (Reported) Past Medical History Past Medical History: Thyroid (unspecified) Past Surgical History: other Patient History: Patient reports no known family medical history. Past Social History: Social history unknown Review of Systems ROS All review of systems negative except as per HPI Physical Exam Physical Exam Physical Exam General: Patient is awake, alert, oriented x4 in no acute distress. Slurred speech Head: Normocephalic and atraumatic. Eyes: Conjunctival normal. EOMI. PERRL. ENT: Mucous membranes moist. Neck: Supple, trachea is midline. Chest: Clear to auscultation bilaterally without rales, rhonchi, or wheezes. There is no accessory muscle use or retractions. Cardiac: RRR without murmurs, gallops, or rubs. Abd: Soft, nondistended, nontender, with normoactive bowel sounds. No guarding, rebound, or rigidity. Neuro: Cranial nerves II-XII grossly intact. No focal neuro deficits. Progress Results/Orders Results/Orders Completed Orders - VICK RAPP MD Electrocardiogram (08/08/25 00:05) Urinalysis, Cult If Indicated (08/08/25 00:05) Procalcitonin (08/08/25 01:10) Cbc/Diff (08/08/25 01:10) BMP (08/08/25 01:10) MG (08/08/25 01:10) Man Diff (08/08/25 01:22) Normal Saline 1000ml (0.9% Sodium Chlori (08/08/25 04:25) Medications Received in ER Medications (Trade) Dose Ordered Sig/Toyin Route PRN Reason Start Time Stop Time Status Last Admin Dose Admin Sodium Chloride 1,000 ml @ 1,000 mls/hr ONCE ONCE IV 08/08/25 04:25 08/08/25 05:24 DC 08/08/25 04:32 1,000 MLS/HR Vital Signs 08/08/25 08/08/25 08/08/25 08/08/25 00:10 00:10 01:22 02:14 Temp 97.7 97.7 97.7 Pulse 80 79 81 Resp 12 15 14 B/P (MAP) 97/53 90/53 (65) 118/58 (78) Pulse Ox 96 92 97 O2 Flow Rate 0 0 0 08/08/25 08/08/25 04:43 05:35 Temp 97.7 97.7 Pulse 82 72 Resp 12 13 B/P (MAP) 109/76 (87) 142/52 (82) Pulse Ox 99 100 O2 Flow Rate 0 0 Laboratory Tests Test 08/08/25 00:33 08/08/25 01:22 08/08/25 05:25 CBC Comment Chemistry Comments White Blood Count 11.1 H Red Blood Count 3.69 L Hemoglobin 11.3 L Hematocrit 33.8 L Mean Corpuscular Volume 91.5 Mean Corpuscular Hemoglobin 30.6 Mean Corpuscular Hemoglobin Concent 33.5 Red Cell Distribution Width 13.2 Platelet Count 290 Mean Platelet Volume 6.7 L Neutrophils (%) (Auto) 68.3 Lymphocytes (%) (Auto) 12.9 L Monocytes (%) (Auto) 7.0 Eosinophils (%) (Auto) 11.3 H Basophils (%) (Auto) 0.5 Neutrophils # (Auto) 7.6 Lymphocytes # (Auto) 1.4 Monocytes # (Auto) 0.8 Eosinophils # (Auto) 1.3 H Basophils # (Auto) 0.1 Differential Total Cells Counted 100 Neutrophils % (Manual) 63.0 Lymphocytes % (Manual) 15.0 L Monocytes % (Manual) 8.0 Eosinophils % (Manual) 14.0 H Platelet Estimate Normal Red Blood Cell Morphology Normal Basophilic Stippling Sodium Level 142 Potassium Level 3.9 Chloride Level 112 H Carbon Dioxide Level 25.0 Anion Gap 5 L Blood Urea Nitrogen 19 H Creatinine 0.69 Estimated GFR/1.73 m2 85 BUN/Creatinine Ratio 27.5 H Glucose Level 106 H Calcium Level 7.8 L Magnesium Level 2.1 Albumin 2.8 L Procalcitonin < 0.05 Urine Specimen Description Non-specified Urine Color Yellow Urine Clarity Clear Urine pH 6.5 Urine Specific [place] <=1.005 Urine Protein Negative Urine Glucose (UA) Negative Urine Ketones Negative Urine Occult Blood Negative Urine Nitrite Negative Urine Bilirubin Negative Urine Urobilinogen 0.2 Urine Leukocyte Esterase Negative Urine Culture Indicated Not ind Volume Urine Centrifuged 10 ml Urine Comment Medical Decision Making Additional information obtaine: old records Findings Patient presents to the emergency room for evaluation of altered mental status. Differentials include but are not limited to medication reaction, urinary tract infection, metabolic encephalopathy, stroke. Physical exam is reassuring for no focal neural deficits and he had not believe patient is suffering from stroke. Patient monitored with slow improvement of her mentation consistent with medication reaction. She was seen here one month ago for similar incidents. Differential Diagnosis j Departure Disposition: HOME / SELF CARE / HOMELESS Impression: Primary Impression: Medication reaction Condition: Improved Discharge Instructions: General Discharge Instructions Additional Instructions: Taking both Seroquel and benzodiazepine together can cause significant sedation. Please be more careful especially if you are caring for children Referrals: NO PRIMARY CARE PROVIDER (PCP) Signature Scribe Signature: No scribe Attestation: The note accurately reflects work and decisions made by me.Vick Rapp MD 08/08/25 05:51 VICK RAPP MD Aug 08, 2025 00:05
--- NOTE | 2025-08-08 00:20 | ELECTROCARDIOGRAPH REPORT ---
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 LASHA Aguilar Measurements Intervals [place] Rate: 79 P: 54 ME: 182 QRS: 6 QRSD: 92 T: 48 QT: 397 QTc: 456 Interpretive Statements Sinus rhythm Electronically Signed On 08-08-2025 17:27:[address] LASHA Aguilar Please click the below link to view image of tracing.
[2025-08-08 01:33] LABS: MEAN PLATELET VOLUME 6.7 FL (7.4-10.4); RED CELL DISTRIBUTION WIDTH 13.2 % (11.5-14.5)
[2025-08-08 01:48] LABS: CREATININE 0.69 MG/DL (0.40-0.90); TOTAL CARBON DIOXIDE 25.0 MMOL/L (24-32); eCRCL 72 ML/MIN; eGFR 85 ML/MIN
[2025-08-08 03:06] LABS: EOSINOPHILS % (MANUAL) 14.0 % (0-6); LYMPHOCYTES % (MANUAL) 15.0 % (21-51); MONOCYTES % (MANUAL) 8.0 % (2-12); NEUTROPHILS % (MANUAL) 63.0 % (42-75)
[2025-08-08 03:07] LABS: PLATELET ESTIMATE NORMAL
[2025-08-08] MEDS: normal saline 1000ml 1,000 ML IV ONE (04:32)
[2025-08-08 05:35] VITALS: BP 142/52; PULSE 72; RESP 13; TEMP 97.7; O2SAT 100
[2025-08-08 05:41] LABS: LEUKOCYTE ESTERASE ,URINE NEGATIVE (Neg); NITRITES, URINE NEGATIVE (Neg); OCCULT BLOOD,URINE NEGATIVE (Neg)
[2025-08-08 05:45] LABS: UA COLLECTION TYPE NON-SPECIFIED
== END 2025-08-08 06:05 | disposition home or self-care (01) ==
LOC: ER 23:59
DX: M62.81 Muscle weakness (generalized) (principal); T42.4X5A Adverse effect of benzodiazepines, initial encounter; Z79.899 Other long term (current) drug therapy; Y92.89 Other specified places as the place of occurrence of the external cause
CPT/HCPCS: 36415; 80048; 81003; 83735; 84145; 85007; 85025; 93005; 96360; 96361; 99285; J7030